=== PATIENT | female | born 1970 | race Caucasian/White ===

== ENCOUNTER 2018-02-15 10:15 | Day surgery (SDC) | payer OTHER ==
[2018-02-12 11:51] LABS: Absolute Lymphocytes (CBC) 1.7 K/uL (0.7-4.9); Absolute Monocytes 0.6 K/uL (0.1-1.3); Absolute Neutrophil 3.1 K/uL (1.8-8.0); Basophils % 0.8 % (0-1.3); Eosinophils % 4.3 % (0-4.4); Hematocrit 39.7 % (36.0-45.0); Lymphocytes % 29.3 % (15.3-44.8); MPV 8.2 fL (7.6-11.3); Monocytes % 11.1 % (3.3-12.3); RBC Red Blood Cell Count 4.27 M/uL (3.86-4.86)
[2018-02-12 12:08] LABS: Urine Appearance CLEAR; Urine Bilirubin NEGATIVE (NEG); Urine Blood 2+ (NEG); Urine Color DK YELLOW; Urine Glucose NEGATIVE (NEG); Urine Protein NEGATIVE (NEG); Urine Specific Gravity 1.025 (1.005-1.030); Urine Urobilinogen 0.2 mg/dL (0.2-1.0); Urine pH 5.5 (5.0-7.0)
[2018-02-12 12:18] LABS: Urine Microscopic Reflex ORDER UMIC
[2018-02-12 12:39] LABS: Urine Bacteria 20-50 /HPF (<20)
[2018-02-12 12:42] LABS: Urine Amorphous Sediment 2+ /HPF (NONE SEEN); Urine Culture Reflex Order ND
[2018-02-15] MEDS ORDERED: SCOPOLAMINE HYDROBROMIDE PATCH TD ONE (10:57)
[2018-02-15] MEDS ORDERED: CEFAZOLIN 2GM (PREMIX IV) 2 GM/50 ML BAG ONE (10:57)
[2018-02-15] MEDS ORDERED: Ringers Lactate 1,000 ML IV ONE ×3 (10:57→15:23)
[2018-02-15 11:01] LABS: Specific Gravity 1.025 (1.005-1.030)
[2018-02-15] MEDS ORDERED: PROPOFOL 200 MG/20 ML VIAL IV ONE (11:08)
[2018-02-15] MEDS ORDERED: DEXAMETHASONE 10 MG/ML VIAL ONE (11:08)
[2018-02-15] MEDS ORDERED: ROCURONIUM 50 MG/5 ML VIAL IV ONE (11:08)
[2018-02-15] MEDS ORDERED: LIDOCAINE 2% MPF 5 ML VIAL ONE (11:08)
[2018-02-15] MEDS ORDERED: ONDANSETRON 4 MG/2 ML VIAL ONE (11:09)
[2018-02-15] MEDS ORDERED: MIDAZOLAM HCL 2 MG/2 ML INJ ONE (11:09)
[2018-02-15] MEDS ORDERED: FENTANYL CITR 250 MCG/5 ML ONE ×2 (11:09→14:21)
[2018-02-15] MEDS ORDERED: KETOROLAC 30 MG/ML INJ ONE (15:05)
[2018-02-15] MEDS ORDERED: MEPERIDINE HCL 25 MG/0.5 ML ONE (16:17)
[2018-02-15] MEDS ORDERED: IBUPROFEN 200 MG TAB PO ONE (17:05)
[2018-02-15] MEDS ORDERED: PROMETHAZINE 25 MG/ML VIAL ONE (18:08)
--- NOTE | 2018-02-18 03:33 | OP ---
Date of Procedure: 02/15/2018 Surgeon: Pam Merrill MD Ordnance Handler: Malia De La Torre. Preoperative Diagnoses: Menorrhagia, abnormal uterine bleeding leiomyoma/ovulatory dysfunction, dysm enorrhea, intramural leiomyomata, the patient is a smoker. Postoperative Diagnoses: Menorrhagia, abnormal uterine bleeding leiomyoma/ovulatory dysfunction, dys menorrhea, intramural leiomyomata, the patient is a smoker, and umbilical hernia slightly over 1 cm. Procedures Performed: 1.Total laparoscopic hysterectomy, bilateral salpingectomy. 2.Lysis of omental adhesions and bladder adhesions. 3.Umbilical hernia repair. Estimated Blood Loss: Minimal. Specimens: Uterus, bilateral tubes and ovaries, and hernia sac. Complications: No complications. Drains: No drains. Condition: Stable. Indications: The patient is a 47-year-old referred to me by her caddymaster, Dr. Resendez, for unc ontrolled bleeding. The patient with fibroids, smoker, and new onset bleeding not controlled by medi gabriele treatment. She was checked Pap smear. Her endometrial sampling were all negative. No evidence of any malignancy or atypia. So after discussing the medical treatment options, surgical treatment o ptions of myomectomy, ablation, Mirena, Depo which did not work for her since she is a smoker, no ora l contraceptives, went ahead to consent the patient for total laparoscopic hysterectomy, bilateral sa lpingectomy. She had 1 in the past. Description Of Procedure: After informed consent was verified, the patient was taken back to OR, giv en 2 g of Ancef, placed in a supine fashion on the operating table. After general anesthesia was giv en, she was placed in a dorsal lithotomy position. Pelvic exam was performed. Arms were tucked by t he side. SCDs were started after the time-out was done start of the case. Abdomen, vulva, vagina, a nd perineum were prepped and draped in a sterile fashion. Castelan was placed to drain the bladder and attached to cysto tubing to an LR bag, emptied 300. A large VCare was introduced into the uterus and fixed in place. It was difficult for me to advance the tip of the VCare all the way to the fundus in this patient for some reason and so this was left in the mid body of the uterus. A 1 cm supraumbilical incision was made with a scalpel since I visualized the umbilical hernia that w as about a centimeter and present on the superior rim of the umbilical dimple, so 1 cm midline vertic al incision was made then the umbilical hernia was clearly evident with its sac and preperitoneal fat . This sac was about 2 cm, so this was all dissected away. The rims of both fascial edges were visu alized, then the hernia sac partially was resected and removed and handed for permanent pathology. R est of the preperitoneal fat was tucked underneath. Simple 0 Vicryl sutures were tagged on both side s of the fascia, did not have to make a fascial incision. After opening the peritoneum sharply with Metzenbaum scissors since the hernia sac was opened, S retractors were placed and Jonny introduced w ithout any problems. Site of entry was checked and was unremarkable, so 10 mm suprapubic, 5 mm left lower quadrant ports were placed under direct vision. After surveying the pelvic cavity, no distorti on of the ureters were seen. There were adhesions of the bladder and anterior wall. I went ahead an d proceeded with making a bladder flap anteriorly. First, even before the suprapubic port was placed , the adhesions had to be taken down from the omentum to the anterior abdominal wall all the way from the level of the suprapubic Pfannenstiel scar to the area below the umbilicus. Once all these were taken down, then the bladder adhesions were found, they were tenting up the uterus, so the planes wer e opened up, there were dense adhesions here and these were taken down with help of the LigaSure and gradually making sure that there was no uterine tissue left on the anterior abdominal wall. Dissecti on was performed to develop a plane, staying intraperitoneal without getting into the retroperitoneum , keeping the bladder away and the adhesions were all the way from 1 round ligament to the other. On ce these adhesions taken down, anatomy restored then the anterior peritoneum on the broad ligament wa s opened up inferior to the left round ligament. The dissection was started. The bladder flap was r aised all the way to the right round ligament. Then, the bladder was retracted inferiorly. VCare cu p was visualized through the vaginal tissues. Dissection was performed until here and then the bladd er pushed about 2 cm superior to it in the midline and posteriorly the round ligament on the left alex e was taken down the tubo-ovarian ligament and the mesosalpinx and tube were taken down, posterior br oad ligament taken down to the left uterosacral. The broad ligament was dissected down to skeletoniz e the vessels and the dissection performed on the opposite side as well without any additional proble ms. Then, once the vessels were isolated, the bladder flap was well defined. The vessels were taken down with the help of the bipolar basket tip and the LigaSure. Cardinal ligaments were cut as well and circumferential colpotomy was performed with the monopolar hook blade. The specimen retrieved th rough the vagina without any problems. Both tubes were dissected completely and removed. Thorough i rrigation and suction were performed. Excellent hemostasis was present. There was some bleeding fro m the posterior cuff and this was cauterized with the help of medium-tipped Bipolar. Then, simple 0 Vicryl stitches were placed at both angles and three [id number] were placed in the center. A f ourth one was placed to pull the posterior peritoneum and vaginal cuff closure on the left side. Onc e this was placed, there were excellent closure and excellent support of the vaginal apex. Then, all dissected sites were all visualized, pedicles were completely hemostatic, ovaries completely healthy . The scope was removed after the trocars were removed under direct vision without any problems. Th en, the umbilical hernia repair was completed. The edges of the fascia were freshened. PDS 0 suture s were taken on a CT1 needle and 2 buried [id number] were placed through this one a little over 1 cm incision. This was well closed with reapproximation of the fascial herman. Then, I closed the skin after tucking the protruding skin out through the umbilicus with a chromic stitch. Then, all th e simple interrupted 4-0 Monocryl sutures were placed. Castelan and vaginal occluder bulb were all patrice yasmine. Instrument, needle, and sponge counts were done and were correct at the end of the case. The patient tolerated the procedure well. She will follow up with yokasta maradiaga in 1 week. ANA/PARAG Voice ID: [id number] Report ID: [id number]
== END 2018-02-15 19:09 | disposition home or self-care (01) ==
LOC: OR 10:15
PROVIDERS: ATTEND Obstetrics & Gynecology
PROC: 0UT94ZZ Resection of Uterus, Percutaneous Endoscopic Approach (ICD-10-PCS; 2018-02-15)
PROC: 0UT74ZZ Resection of Bilateral Fallopian Tubes, Percutaneous Endoscopic Approach (ICD-10-PCS; 2018-02-15)
PROC: 0WQF0ZZ Repair Abdominal Wall, Open Approach (ICD-10-PCS; principal; 2018-02-15 11:30)
DX: N92.1 Excessive and frequent menstruation with irregular cycle (principal); D25.1 Intramural leiomyoma of uterus; K42.9 Umbilical hernia without obstruction or gangrene; N94.6 Dysmenorrhea, unspecified; E28.39 Other primary ovarian failure; K66.0 Peritoneal adhesions (postprocedural) (postinfection); N32.89 Other specified disorders of bladder; N83.8 Other noninflammatory disorders of ovary, fallopian tube and broad ligament; F17.210 Nicotine dependence, cigarettes, uncomplicated; Z83.3 Family history of diabetes mellitus; Z82.49 Family history of ischemic heart disease and other diseases of the circulatory system
CPT/HCPCS: 36415; 81003; 81015; 81025; 85025; 86850; 86900; 86901; 88302; 88307; J0690; J1100; J2175; J2250; J2405; J2550; J2704; J3010